=== PATIENT | male | born 1955 | race Caucasian/White ===

== ENCOUNTER 2019-04-05 07:44 | Emergency (ER) | payer BC, OTHER ==
[~2019-04-05] VITALS: Ht 177.8 cm; Wt 90.9 kg
[2019-04-05 08:19] LABS: BASO % 0.4 % (0.0-1.0); EOS # 0.1 10^3/uL (0.0-0.50); EOS % 1.6 % (0.0-3.0); HEMATOCRIT 46.5 % (42.0-52.0); HEMOGLOBIN 16.1 g/dl (13.5-17.5); LYMPH # 2.7 10^3/uL (1.5-4.5); MEAN CORPUSCULAR HGB CONC 34.6 g/dl (32.0-36.5); MEAN CORPUSCULAR VOLUME 89.4 fl (80.0-96.0); MONO # 0.7 10^3/uL (0.0-0.8); MONO % 8.2 % (0.0-5.0); NEUTROPHILS # 4.6 10^3/uL (1.8-7.7); NEUTROPHILS % 56.6 % (36.0-66.0); PLATELET COUNT, AUTOMATED 208 10^3/uL (150-450); WHITE BLOOD COUNT 8.2 10^3/uL (4.0-10.0)
--- NOTE | 2019-04-05 08:20 | ECGEPIP ---
[facility] - ED Test Date: 2019-04-05 Pat Name: KIANA MCWILLIAMS Department: Room: - Gender: Male [employer]: DUSTY : 1955 Requested By: Daylin Hooper Order Number: [id number] Reading MD: Yasmani Blair Measurements Intervals [place] Rate: 54 P: 65 IA: 147 QRS: 69 QRSD: 101 T: 61 QT: 415 QTc: 394 Interpretive Statements SINUS BRADYCARDIA BENIGN EARLY REPOLARIZATION NO PRIORS FOR COMPARISON Electronically Signed on 04-05-2019 8:19:58 EDT by Yasmani Blair
[2019-04-05 08:29] LABS: INR 0.88
[2019-04-05] MEDS ORDERED: ASPIRIN 81 MG CHEW TABLET PO ONE (08:30)
[2019-04-05 08:47] LABS: ALBUMIN 3.9 GM/DL (3.2-5.2); ALT/SGPT 30 U/L (12-78); BILIRUBIN,DIRECT < 0.1 MG/DL (0.0-0.2); BILIRUBIN,TOTAL 0.5 MG/DL (0.2-1.0); BLOOD UREA NITROGEN 18 MG/DL (7-18); CALCIUM LEVEL 9.2 MG/DL (8.8-10.2); CARBON DIOXIDE LEVEL 27 MEQ/L (21-32); CHLORIDE LEVEL 107 MEQ/L (98-107); CPK CREATINE PHOSPHOKINASE 108 U/L (39-308); CREATININE FOR GFR 1.14 MG/DL (0.70-1.30); GLOMERULAR FILTRATION RATE > 60.0 (>49); GLUCOSE, FASTING 106 MG/DL (70-100); LIPASE 79 U/L (73-393); NT-PRO BNP 152 PG/ML (<125); POTASSIUM SERUM 4.6 MEQ/L (3.5-5.1); SODIUM LEVEL 141 MEQ/L (136-145); TOTAL PROTEIN 6.7 GM/DL (6.4-8.2); TROPONIN I 0.38 NG/ML (< 0.10)
--- NOTE | 2019-04-05 09:10 | REP ---
CHEST, PORTABLE: AP portable view of the chest is performed. There is mild bibasilar fibroatelectatic change. There is no acute infiltrate. Heart is normal in size. Mediastinal silhouette is unremarkable. IMPRESSION: Mild bibasilar fibroatelectatic change without acute infiltrate. Electronically Signed by Chago Torres MD 04/05/2019 04:25 P
[2019-04-05] MEDS ORDERED: RABE1TAB PO (09:14)
[2019-04-05] MEDS ORDERED: LOSA25TA14 PO (09:14)
[2019-04-05] MEDS ORDERED: HEPARIN DRIP 25,000 UNITS in APPROPRIATE DILUENT 1 EA IV SCH (11:22)
[2019-04-05] MEDS ORDERED: HEPARIN SOD (PORCINE) 5000 UNITS/ML VIAL IV ONE (11:30)
[2019-04-05] MEDS ORDERED: MECLIZINE 12.5 MG TAB PO ONE (11:45)
[2019-04-05 12:50] VITALS: BP 153/86
== END 2019-04-05 12:51 | disposition short-term general hospital (02) ==
LOC: M ED 07:44
DX: I24.9 Acute ischemic heart disease, unspecified (principal); R00.1 Bradycardia, unspecified; R06.02 Shortness of breath; I10 Essential (primary) hypertension; Z87.891 Personal history of nicotine dependence; Z82.49 Family history of ischemic heart disease and other diseases of the circulatory system; Z88.2 Allergy status to sulfonamides; Z79.899 Other long term (current) drug therapy